=== PATIENT | male | born 1935 | race Caucasian/White ===

== ENCOUNTER 2020-12-29 07:21 | Emergency (ER) | payer MEDICARE ==
[~2020-12-29] VITALS: Ht 172.7 cm; Wt 64.4 kg
--- NOTE | 2020-12-29 07:31 | PHYS DOC ---
Past History Past Medical History: Dementia, Depression Adult General Chief Complaint Chief Complaint: MECHANICAL FALL HPI HPI Patient is a 85-year-old male presenting via EMS for weakness. Majority of history is obtained from son whom patient lives with. Reports that patient fell 48 hours ago while son was at work, it is unknown how long patient was down but ever since, son states that patient has been more weak. Son states that there has been gradual decline in patient's health over past few months to years. Has had ongoing weight loss, generalized weakness and depression without SI. Patient's daily routine is to wake up, ambulate to living room chair utilizing walker, eat breakfast and stay in living room chair all day until it is time for dinner when he ambulates up for dinner, he then goes to bed. He has had worsened tremors of right upper extremity and short shuffling gait that has been noticeably "more choppy", unsteady, and drifting to his right since most recent fall on . Patient suffered an additional fall while rolling to get out of bed today, did not hit his head, no loss of consciousness but ongoing generalized weakness and inability to care for self worried son who called EMS to transport to our facility for evaluation. Of note, patient only takes donepezil and sertraline at home, occasionally takes Naprosyn for back pain. No recent fever, chills, chest pain, shortness of breath, abdominal pain, no reported UTI-like symptoms Review of Systems Review of Systems Fourteen body systems of review of systems have been reviewed. See HPI for pertinent positives and negative responses, other medrano all other systems are negative, non-pertinent or non-contributory Physical Exam Physical Exam Constitutional: Pt is oriented to person, place, but not time. Pt appears poorly kept with food around face, poor overall hygiene HEENT: Head: Normocephalic and atraumatic. External ears unremarkable, no hemotympanum Left conjunctivae and EOM are normal. Left pupil equal, round, and reactive to light. Artificial right eye Oropharynx is clear and dry. No hematomas or lacerations or abrasions to face or scalp OP clear, no blood, no malocclusion, dentition intact Nares clear, no nasal septal hematoma Midface stable Neck: C-spine midline tender, no step-offs Cardiovascular: Normal rate, regular rhythm without chest wall abnormalities Pulmonary/Chest: Effort normal and breath sounds normal. No respiratory distress. No wheezes. CTA bilaterally Abdominal: Soft. Bowel sounds are normal. Pt exhibits no distension. There is no tenderness. Musculoskeletal: No bony tenderness to extremities, no deformities, full ROM extremities Chest wall stable Pelvis stable and non-tender No vertebral TTP and spine without stepoffs Neurological: Pt is alert and oriented to person and place Moving all extremities willfully, able to wiggle all fingers and toes Pill-rolling tremor of right upper extremity noted Motor and sensory function grossly intact No saddle anesthesia Bilateral upper extremities in flexed position your body Skin: Skin is warm and dry. No abrasions, no lacerations Psychiatric: Behavior is appropriate for situation Current Patient Data Vital Signs Vital Signs Date Time Temp Pulse Resp B/P (MAP) Pulse Ox O2 Delivery O2 Flow Rate FiO2 12/29/20 07:21 75 20 166/102 (123) 94 Room Air Vital Signs Date Time Temp Pulse Resp B/P (MAP) Pulse Ox O2 Delivery O2 Flow Rate FiO2 12/29/20 07:21 75 20 166/102 (123) 94 Room Air Lab Results Laboratory Tests Test 12/29/20 07:33 12/29/20 08:05 White Blood Count 7.4 x10^3/uL Red Blood Count 4.48 x10^6/uL Hemoglobin 14.1 g/dL Hematocrit 41.9 % Mean Corpuscular Volume 94 fL Mean Corpuscular Hemoglobin 31 pg Mean Corpuscular Hemoglobin Concent 34 g/dL Red Cell Distribution Width 14.5 % Platelet Count 123 x10^3/uL Neutrophils (%) (Auto) 78 % Lymphocytes (%) (Auto) 9 % Monocytes (%) (Auto) 10 % Eosinophils (%) (Auto) 2 % Basophils (%) (Auto) 1 % Neutrophils # (Auto) 5.7 x10^3uL Lymphocytes # (Auto) 0.7 x10^3/uL Monocytes # (Auto) 0.8 x10^3/uL Eosinophils # (Auto) 0.1 x10^3/uL Basophils # (Auto) 0.0 x10^3/uL Sodium Level 143 mmol/L Potassium Level 3.5 mmol/L Chloride Level 105 mmol/L Carbon Dioxide Level 32 mmol/L Anion Gap 6 Blood Urea Nitrogen 32 mg/dL Creatinine 0.9 mg/dL Estimated GFR (Cockcroft-Gault) 79.8 Glucose Level 109 mg/dL Calcium Level 8.8 mg/dL Creatine Kinase 599 U/L Troponin I Quantitative 0.080 ng/mL EKG EKG EKG ordered and interpreted by myself at 0739 hrs. as sinus rhythm at 72 bpm, prolonged QTC at 464 otherwise unremarkable intervals, left axis deviation, no acute ischemic findings, no STEMI Radiology/Procedures Radiology/Procedures CT Head W/O Contrast: History: Reason: fall x2 days ago with ongoing midline neck pain / Spl. Instructions: / History: Comparison: none Axial images were obtained without contrast. There is a hyperattenuating extra-axial mass posterior to the left parietal lobe that measures 4.8 x 2.5 cm and has some adjacent vasogenic edema. Extra-axial fluid anteriorly is seen. There is moderate diffuse atrophy. There is no midline shift. There is no gross bleed. There is no loss of hills-white distinction to suggest acute ischemia. There is no hydrocephalus. The right globe is small and calcified. Impression: 1. 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 Comparison to an old CT would be helpful. 2. CSF attenuating fluid anteriorly could be secondary to atrophy or could be a chronic hygroma. End impression CT C-Spine without contrast: Clinical History: Reason: fall x2 days ago with ongoing midline neck pain / Spl. Instructions: / History: Technique: Axial helical images of the cervical spine were obtained without contrast, axial coronal and sagittal reconstruction was performed. Findings: There is no loss of vertebral body stature. There is no prevertebral soft tissue swelling. The vertebral bodies are well aligned. The C1-C2 relationship is normal. The visualized osseous structures appear normal. Impression: No acute findings. Clinical correlation suggested. PQRS Compliance Statement: One or more of the following individualized dose reduction techniques were utilized for this examination: 1. Automated exposure control 2. Adjustment of the mA and/or kV according to patient size 3. Use of iterative reconstruction technique Electronically signed by: Kendall Mota III, MD (12/29/2020 8:05 AM) [facility] /////////////// XR CHEST 1V Clinical History: Reason: fall, upper neck pain / Spl. Instructions: / History: Technique: AP view of the chest was obtained at 12/29/2020 7:28 AM. Comparison: None. Findings: The cardiomediastinal silhouette is normal. The pulmonary vasculature is normal. The lungs and pleural margins are clear. Curvilinear edges on the right are consistent with overlying skin folds. Impression: No evidence of an acute cardiopulmonary process. Electronically signed by: Kendall Mota III, MD (12/29/2020 8:06 AM) [facility] Heart Score C/O Chest Pain: No HEART Score for Chest Pain: HEART Score for Chest Pain Response (Comments) Value History Slighlty/Non-Suspicious 0 ECG Nonspecific Repolarizatio 1 Age > 65 2 Risk Factors >3 Risk Factors or Hx CAD 2 Troponin >1-<3x Normal Limit 1 Total 6 Risk Factors: Risk Factors: DM, Current or recent (<one month) smoker, HTN, HLP, family history of CAD, obesity. Risk Scores: Risk Factors: DM, Current or recent (<one month) smoker, HTN, HLP, family history of CAD, obesity. Course & Med Decision Making Course & Med Decision Making ABCs unremarkable. History concerning for geriatric failure to thrive with other features of concern such as unintentional weight loss and ongoing falls. Physical exam remarkable for midline C-spine tenderness and bladder incontinence that is not uncommon for patient Diagnostic work-up reviewed concerning for extra-axial brain mass. Patient also has elevated troponin without ongoing chest pain. Discussed findings with patient and son who is at bedside. Joint decision among all for transfer for higher acuity of care and potential MRI Symptoms stressed feelings of caregiver fatigue and would be open for temporary placement of patient if possible. Confirmed patient is full CODE STATUS Dr. Larson was contacted at and case was reviewed, he agreed need for admission and accepted patient under his care Patient and son updated on proposed plan of care and they remained amenable. All questions and concerns addressed prior to ER transfer to for admission Critical Care Time This patient required critical care. Due to the fact that the patient required a significant amount of one on one physician - patient contact time, ordering and review of studies, arranging urgent treatment with development of a management plan, evaluation of patients response to treatment with frequent reassessments, and discussions with other providers this patient required 50 minutes of critical care time. Critical care time was indicated due to the inherent instability and/or potential for instability in this patient. The critical care time that is allocated to this patient is above and beyond any time spent on any other billable procedures performed on this patient. Dragon Disclaimer Dragon Disclaimer This electronic medical record was generated, in whole or in part, using a voice recognition dictation system. Departure Departure: Impression: Primary Impression: Extra-axial brain tumor Additional Impressions: Frequent falls Elevated troponin Disposition: 02 DC/TRF OTHER SHORT TERM HOS ([facility]) Admitting Physician: Other (dr larson) Condition: STABLE Referrals: PCP,UNKNOWN (PCP) Problem Qualifiers ANN TERRY DO Dec 29, 2020 07:31
[2020-12-29 07:55] LABS: BASO % 1 % (0-3); EOS # 0.1 x10^3/uL (0.0-0.7); EOS % 2 % (0-3); HEMATOCRIT 41.9 % (39.0-53.0); HEMOGLOBIN 14.1 g/dL (13.0-17.5); LYMPH # 0.7 x10^3/uL (1.0-4.8); LYMPH % 9 % (24-48); MEAN CORPUSCULAR HEMOGLOBIN 31 pg (25-35); MEAN CORPUSCULAR HGB CONC 34 g/dL (31-37); MEAN CORPUSCULAR VOLUME 94 fL (79-100); MONO # 0.8 x10^3/uL (0.0-1.1); MONO % 10 % (0-9); NEUT # 5.7 x10^3uL (1.8-7.7); NEUT % 78 % (31-73); PLATELET COUNT 123 x10^3/uL (140-400); RED BLOOD COUNT 4.48 x10^6/uL (4.30-5.70); RED CELL DISTRIBUTION WIDTH 14.5 % (11.5-14.5); WHITE BLOOD COUNT 7.4 x10^3/uL (4.0-11.0)
--- NOTE | 2020-12-29 08:03 | EKG ---
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
--- NOTE | 2020-12-29 08:07 | RAD ---
CT Head W/O Contrast: History: Reason: fall x2 days ago with ongoing midline neck pain / Spl. Instructions: / History: Comparison: none Axial images were obtained without contrast. There is a hyperattenuating extra-axial mass posterior to the left parietal lobe that measures 4.8 x 2.5 cm and has some adjacent vasogenic edema. Extra-axial fluid anteriorly is seen. There is moderate diffuse atrophy. There is no midline shift. There is no gross bleed. There is no loss of hills-white distinction to suggest acute ischemia. There is no hydrocephalus. The right globe is small and calcif ied. Impression: 1. Extra-axial mass posterior right parietal lung could be a meningioma however given the vasogenic e breana a dural based metastasis is not excluded. Comparison to an old CT would be helpful. 2. CSF attenuating fluid anteriorly could be secondary to atrophy or could be a chronic hygroma. End impression CT C-Spine without contrast: Clinical History: Reason: fall x2 days ago with ongoing midline neck pain / Spl. Instructions: / His tory: Technique: Axial helical images of the cervical spine were obtained without contrast, axial coronal and sagittal reconstruction was performed. Findings: There is no loss of vertebral body stature. There is no prevertebral soft tissue swelling. The vert ebral bodies are well aligned. The C1-C2 relationship is normal. The visualized osseous structures a ppear normal. Impression: No acute findings. Clinical correlation suggested. PQRS Compliance Statement: One or more of the following individualized dose reduction techniques were utilized for this examinat ion: 1. Automated exposure control 2. Adjustment of the mA and/or kV according to patient size 3. Use of iterative reconstruction technique Electronically signed by: Kendall Mota III, MD (12/29/2020 8:05 AM) [facility]
--- NOTE | 2020-12-29 08:08 | RAD ---
XR CHEST 1V Clinical History: Reason: fall, upper neck pain / Spl. Instructions: / History: Technique: AP view of the chest was obtained at 12/29/2020 7:28 AM. Comparison: None. Findings: The cardiomediastinal silhouette is normal. The pulmonary vasculature is normal. The lungs and pleura l margins are clear. Curvilinear edges on the right are consistent with overlying skin folds. Impression: No evidence of an acute cardiopulmonary process. Electronically signed by: Kendall Mota III, MD (12/29/2020 8:06 AM) [facility]
[2020-12-29] MEDS ORDERED: SERT50TA PO (08:27)
[2020-12-29] MEDS ORDERED: DONE5TAB7 PO (08:28)
[2020-12-29] MEDS ORDERED: NAPR-695 PO (08:29)
[2020-12-29 08:31] LABS: CALCIUM 8.8 mg/dL (8.5-10.1); CREATININE 0.9 mg/dL (0.7-1.3); GFR 79.8; POTASSIUM 3.5 mmol/L (3.5-5.1)
[2020-12-29 08:54] VITALS: BP 129/70
== END 2020-12-29 10:02 | disposition short-term general hospital (02) ==
LOC: ER 07:21
DX: D49.6 Neoplasm of unspecified behavior of brain (principal); R77.8 Other specified abnormalities of plasma proteins; R29.6 Repeated falls; F03.90 Unspecified dementia, unspecified severity, without behavioral disturbance, psychotic disturbance, mood disturbance, and anxiety; F32.9 Major depressive disorder, single episode, unspecified
CPT/HCPCS: 36415; 70450; 71045; 72125; 80048; 82550; 84484; 85025; 93005; 99291-25